=== PATIENT | female | born 1930 | race American Indian/Alaskan Native ===

== ENCOUNTER 2018-08-22 13:00 | Outpatient (CLI) | payer MEDICARE ==
--- NOTE | 2018-08-22 15:55 | Cat Scan Report ---
PROCEDURE: CT ABDOMEN PELVIS WO CON TECHNIQUE: CT of the abdomen and pelvis was performed without intravenous contrast. Coronal and sagittal reconstructions were included. HISTORY: Disorder of kidney and ureter COMPARISONS: None FINDINGS: Lower thorax: The lung bases are clear. The visualized portions of the heart demonstrate no abnormali ty. Liver: Normal attenuation. No masses. Gallbladder/biliary system: Cholelithiasis is seen. The common bile duct appears nondilated. No gallb ladder wall thickening or pericholecystic fluid. Spleen: No splenic mass. Pancreas: No masses. No pancreatic duct dilation. Adrenal glands: No masses. Kidneys: A focal slightly hyperattenuating mass is seen in the interpolar region of the right kidney measuring 3.7 x 3.7 x 2.9 cm. No hydronephrosis. No renal or ureteral calculi. Vasculature: The abdominal aorta is nondilated. Calculi are seen in the abdominal aorta. Lymph nodes: No enlarged lymph nodes. Bowel: No bowel obstruction. No free fluid. No free air. The appendix was not seen. Colonic diverticu losis is seen. No evidence of diverticulitis. There is a large amount of retained stool in the rectum . Pelvis: Post hysterectomy. The right ovary appears normal. The left ovary was not definitively seen. No urinary bladder wall thickening or filling defects. Abdominal wall: There is a fat-containing umbilical hernia. Calcified injection granulomata are seen within the buttocks. Bones: No acute finding. Degenerative changes are seen in the spine. IMPRESSION: 1. Focal right renal lesion is higher in attenuation than a simple cyst and may represent a solid char[place] al neoplasm. Recommend further evaluation with dedicated, multiphasic renal CT or MRI to better pooja cterize this lesion. 2. Large amount of retained stool in the rectum. 3. Colonic diverticulosis without diverticulitis. 4. Cholelithiasis. This document is electronically signed by Purnima López., August 22 2018 03:52:02 PM ET
== END 2018-08-22 13:01 | disposition home or self-care (01) ==
LOC: CT 13:00
PROVIDERS: ATTEND Internal Medicine
DX: N28.1 Cyst of kidney, acquired (principal); K57.30 Diverticulosis of large intestine without perforation or abscess without bleeding; K80.20 Calculus of gallbladder without cholecystitis without obstruction; E66.01 Morbid (severe) obesity due to excess calories; I11.0 Hypertensive heart disease with heart failure; I50.9 Heart failure, unspecified
CPT/HCPCS: 74176